=== PATIENT | female | born 1960 | race Caucasian/White ===

== ENCOUNTER 2017-10-06 11:39 | Day surgery (SDC) | payer OTHER ==
--- NOTE | 2017-10-05 13:07 | HP ---
CC: Primary Care Physician, Mary Beth Ramos MD * HISTORY AND PHYSICAL: DATE OF ADMISSION: 10/06/17 - OR [facility] HISTORY OF PRESENT ILLNESS: Angela Joseph is a 56-year-old very pleasant female , who presents with right knee pain. It has been going on for several months. She states that it would bother her depending on what actually she is doing. She said that she occasionally had pain over the years and knew that she had some form of mild arthritis but she had an event and noticed that she would get locking. She was seen by Dr. Pate at [facility], who diagnosed her with a large loose body. She has an MRI as well as an x-ray that confirms the diagnosis. Her pain is about a 1/10 but when it moves and locks on her, she is stuck at, she has significant pain and swelling. She denies any numbness or tingling. No other episodes of instability. No fevers or chills. No history of surgery in that knee before. PAST MEDICAL HISTORY: Negative. PAST SURGICAL HISTORY: Negative. FAMILY HISTORY: Significant for high blood pressure in her mother and cancer in her father. SOCIAL HISTORY: She lives with her partner. She works in IT. She denies tobacco and drinks seven alcoholic beverages per week. She exercises regularly by walking and playing volleyball. She is right-hand dominant. REVIEW OF SYSTEMS: A 14-point review of systems is reviewed with the patient, is significant only for the above complaint. Otherwise, remainder of systems is negative. PHYSICAL EXAMINATION GENERAL: She is in no acute distress. She is well developed, well nourished. She is alert and oriented x3. She has pleasant mood and normal affect. Good balance and coordination of her extremities. She walks with a normal gait. She stands in neutral alignment. HEENT: EOMI. CHEST: Clear to auscultation. HEART: Regular rate and rhythm. ABDOMEN: Soft and nontender. EXTREMITIES: Examination of the right knee demonstrates the skin is intact. There is no erythema or warmth. She has mild effusion. She is not specifically tender to palpation, but there is crepitus that is audible. Range of motion is 0 to 120 degrees, but deep flexion is painful, stable to varus and valgus stress. Calf is soft and nontender. Sensate to light touch about the first dorsal webspace, medial, lateral, dorsal, and plantar foot. She has 2+ PT pulse, 5/5 strength in dorsiflexion and plantar flexion. Examination of the left knee demonstrates skin is intact. There is no erythema or warmth. She has full range of motion with mild amount of crepitus. No effusion. Stable to varus and valgus stress. Not significantly tender to palpation. Sensate to light touch grossly distally. Brisk cap refill. DIAGNOSTIC STUDIES/LAB DATA: X-rays and MRI were reviewed that demonstrate mild osteoarthritis but there is a large bony loose body that is present. Otherwise, there is no obvious meniscus tear. ASSESSMENT AND PLAN: She has large loose body floating around the knee. She is having some episodes of locking and swelling in the knee. It is interfering her activities of daily living. She is very active. At this point, I recommended right knee arthroscopy with removal of loose body and possible chondroplasty. Risks and benefits of surgery were discussed at length and included but are not limited to bleeding, infection; damage to nerves, vessels, and surrounding structures; the wound nonhealing, persistent pain, need for further surgery, scarring, stiffness, incomplete relief of symptoms, risk of anesthesia, risk of DVT. We will see her back approximately 10 days after surgery. [id number]/[facility] #: [id number] YADIRA
[~2017-10-06 11:39] MED LIST: Buffered Lidocaine 0.9% SYRIN* 5 ML/SYR SYRINGE INTRADERM ONE; DiMENhydriNATE IV* 50 MG/ML VIAL IV PUSH PRN; Famotidine TAB* 20 MG ONE; Famotidine TAB* 20 MG PO ONE; Morphine INJ* 2 MG/ML 1 ML CARPUJECT IV PRN; Naloxone* 0.4 MG/ML 1 ML VIAL IV PRN; PROCHLORPERAZINE INJ 5 MG/ML 2 ML VIAL IV PRN; Scopolamine 1.5 mg* PATCH TRANSDERM PRN; fentaNYL* 50 MCG/ML 2 ML VIAL (100 MCG VIAL) IV PRN; oxyCODONE/Acetamin 5/325 MG* TAB PO PRN
[2017-10-06] MEDS ORDERED: ceFAZolin 2 GM PREMIX (*) 2 GM/50 ML BAG IVPB ONE (12:00)
[2017-10-06] MEDS ORDERED: fentaNYL* 50 MCG/ML 2 ML VIAL (100 MCG VIAL) ONE (12:12)
[2017-10-06] MEDS ORDERED: Midazolam* 1 MG/ML 5 ML VIAL (5 MG) ONE (12:12)
[2017-10-06] MEDS ORDERED: Lidocaine 1% MPF wEPI 200,000* 30 ML SDV ONE (12:58)
[2017-10-06] MEDS ORDERED: Bupivacaine 0.25% SDV* 30 ML ONE (12:58)
[2017-10-06 15:02] VITALS: BP 147/73
--- NOTE | 2017-10-06 17:15 | OP ---
CC: PCP, Mary Beth Ramos MD * DATE OF OPERATION: 10/06/17 - [facility] DATE OF : 58 SURGEON: Jace Truong MD ROUGH ROUNDER MACHINE: None was available. ANESTHESIOLOGIST: Dr. Gonzalez. ANESTHESIA: General. PRE-OP DIAGNOSIS: Right knee osteoarthritis with loose body. POST-OP DIAGNOSES: Right knee osteoarthritis with loose body 2 cm in length and unstable lateral meniscus tear. OPERATIVE PROCEDURE: Right knee arthroscopy with: 1. Removal of loose body through a separate incision. 2. Partial lateral meniscectomy. 3. Chondroplasty of the patellofemoral joint. COMPLICATIONS: None. ESTIMATED BLOOD LOSS: Minimal. INDICATIONS: Angela Joseph is a 56-year-old female who has had persistent catching and locking symptoms. She has radiographic as well as MRI confirming a large loose body that is present. She has symptoms and it is impairing her activities of daily living. She does have known osteoarthritis, but this is not the pain she is complaining of. The risks and benefits were discussed with patient, included but not limited to bleeding, infection, damage to nerves, vessels, surrounding structures, wound nonhealing, persistent pain, need for surgery, scarring, stiffness, incomplete release of symptoms, and risks of anesthesia. DESCRIPTION OF PROCEDURE: The patient was greeted in the preoperative area by the attending surgeon. Correct extremity was marked and consent was confirmed. The patient was brought back to the operating suite, where she was placed in a supine position on the operating room table. She then underwent general anesthesia and LMA intubation after which she was appropriately positioned on the bed. The lateral post was positioned and unsterile tourniquet was placed high on the proximal thigh. The right lower extremity was prepped and draped in the usual sterile fashion beginning with chlorhexidine soap scrub and alcohol wipe and a final prep with ChloraPrep. After appropriate surgical pause indicating site, side, and procedure and administration of antibiotics, the knee was intra-articularly injected with 1% lidocaine with epi. The anterolateral portal was made sharply with an 11- blade. Scope was introduced into the joint. The joint was examined. There was a large osteophyte and grade 2 and 3 changes of the patella. The trochlea had small areas of grade 3 changes. The anteromedial portal was made in outside-in fashion. The shaver was used to debride back the ligamentum. The medial compartment was examined. There was no evidence of tearing with grade 0 to 1 changes of the medial and lateral compartments. The knee was placed in a figure -of-four position. Note the loose body was not evident. The lateral meniscus had an unstable radial split that was turning into an early parrot beak posteriorly. This was debrided back using brittny and biters to a stable layer. There were grade 1 to 2 changes of the lateral femoral compartment. The scope was then removed once all the debris was removed. The patellofemoral joint was examined. There were areas of grade 4 changes particularly along the patellofemoral joint laterally. The scope was then brought into the medial and lateral gutters. The large loose body was evident laterally. A needle was then used to localize and a separate incision was made. This was then grasped with a grasper and brought out through the wound. The loose body was bone and measyured over 2 cm. Images were obtained. The knee was thoroughly lavaged and debrided. Final images were obtained and the accessory portals were closed with 3-0 nylon. The knee was intra- articularly injected with 0.25% Marcaine plain. Sterile dressings were applied and a Cryo/Cuff was applied. She was awoken from anesthesia and transferred to PACU in stable condition. POSTOPERATIVE PLAN: She will be weightbearing as tolerated with crutches for 3 to 5 days. She will be allowed to work on range of motion as tolerated. She will be discharged on pain medications. DVT prophylaxis considered, but deferred due to no previous personal or family history. I will see the patient back in 14 days. [id number]/[facility] #: [id number] YADIRA
[2017-10-09] MEDS ORDERED: Scopolamine PATCH Remove* 1 NOTE MISC PATCH OFF ONE (05:50)
== END 2017-10-06 14:49 | disposition home or self-care (01) ==
LOC: OREAST 11:39
PROVIDERS: ATTEND Orthopaedic Surgery
DX: M23.261 Derangement of other lateral meniscus due to old tear or injury, right knee (principal); M17.11 Unilateral primary osteoarthritis, right knee; M23.41 Loose body in knee, right knee
CPT/HCPCS: A9270-GY; J0690; J2001; J2250; J3010

== ENCOUNTER 2018-08-03 07:18 | Emergency (ER) | payer OTHER ==
[2018-08-03 07:30] VITALS: BP 145/84
--- NOTE | 2018-08-03 08:00 | UC ---
Respiratory Complaint HPI - HPI Summary HPI Summary: 57 yo female with a typical cold back in June. Symptoms all resolved expect she has had a persistent cough. Cough not productive. Feels like she has a tickle in her throat. no CP or SOB no f/c no sinus pressure or pain maybe some mild PND - History of Current Complaint Chief Complaint: UCRespiratory Stated Complaint: COUGH Time Seen by Provider: 08/03/18 08:00 Hx Obtained From: Patient Hx Last Menstrual Period: 2 yrs Onset/Duration: Sudden Onset, Lasting Hours, Lasting Weeks Timing: Constant Severity Initially: Mild Severity Currently: Moderate Pain Intensity: 0 Pain Scale Used: 0-10 Numeric Character: Cough: Nonproductive Associated Signs And Symptoms: Positive: Nasal Congestion, Sinus Discomfort - Allergies/Home Medications Allergies/Adverse Reactions: Allergies Allergy/AdvReac Type Severity Reaction Status Date / Time No Known Allergies Allergy Verified 08/03/18 07:28 Home Medications: Home Medications Guaifenesin/Dextromethorphan [Mucinex Dm Maximum Streng 60-1200 mg] 1 tab PO Q12H PRN 08/03/18 [History Confirmed 08/03/18] PMH/Surg Hx/FS Hx/Imm Hx Previously Healthy: Yes Other History Of: Negative For: HIV, Hepatitis B, Hepatitis C - Surgical History Surgical History: Yes Surgery Procedure, Year, and Place: D&C 1992 - - Family History Known Family History: Positive: Hypertension - Social History Alcohol Use: Daily Alcohol Amount: reports 1 glass wine daily Substance Use Type: None Smoking Status (MU): Never Smoked Tobacco Review of Systems All Other Systems Reviewed And Are Negative: Yes Constitutional: Positive: Negative Skin: Positive: Negative Eyes: Positive: Negative ENT: Positive: Negative Respiratory: Positive: Cough Cardiovascular: Positive: Negative Gastrointestinal: Positive: Negative Genitourinary: Positive: Negative Motor: Positive: Negative Neurovascular: Positive: Negative Musculoskeletal: Positive: Negative Neurological: Positive: Negative Psychological: Positive: Negative Physical Exam Triage Information Reviewed: Yes Appearance: Well-Appearing, No Pain Distress, Well-Nourished Vital Signs: Initial Vital Signs Temp 98 F 08/03/18 07:27 Pulse 82 08/03/18 07:27 Resp 16 08/03/18 07:27 BP 145/84 08/03/18 07:27 Pulse Ox 97 08/03/18 07:27 Vital Signs Reviewed: Yes Eyes: Positive: Conjunctiva Clear ENT: Positive: Hearing grossly normal, TMs normal, Uvula midline. Negative: Pharyngeal erythema, Nasal congestion, Nasal drainage, Tonsillar swelling, Tonsillar exudate, Trismus, Muffled voice, Hoarse voice, Sinus tenderness Neck: Positive: Supple, Nontender, No Lymphadenopathy Respiratory: Positive: Lungs clear, Normal breath sounds, No respiratory distress, No accessory muscle use Cardiovascular: Positive: RRR, No Murmur Musculoskeletal: Positive: No Edema Neurological: Positive: Alert Psychological Exam: Normal Skin Exam: Normal UC Diagnostic Evaluation - Laboratory O2 Sat by Pulse Oximetry: 97 - normal/not hypoxic Respiratory Course/Dx - Differential Dx/Diagnosis Provider Diagnosis: Post-viral cough syndrome Discharge - Sign-Out/Discharge Documenting (check all that apply): Patient Departure All imaging exams completed and their final reports reviewed: No Studies - Discharge Plan Condition: Stable Disposition: HOME Prescriptions: Benzonatate CAP* [Tessalon CAP*] 100 - 200 mg PO TID PRN #[id number] cap PRN Reason: Cough Patient Education Materials: Acute Cough (ED) Referrals: Mary Beth Ramos MD [Primary Care Provider] - 1 Week Additional Instructions: I suspect you are having a post viral illness cough At this time I don't think you need any special studies should your symptoms not improve I suggest you recheck with your MD in about a week - Billing Disposition and Condition Condition: STABLE Disposition: Home
== END 2018-08-03 08:18 | disposition home or self-care (01) ==
LOC: UCCORT 07:18
DX: R05 Cough (principal)
CPT/HCPCS: 99212; G0463